=== PATIENT | male | born 1945 | race Caucasian/White ===

== ENCOUNTER 2016-06-16 03:41 | Emergency (ER) | payer OTHER, MEDICARE ==
[~2016-06-16] VITALS: Ht 177.8 cm; Wt 86.4 kg
[~2016-06-16 03:41] MED LIST: ANTI-DIARRHEAL2 M1 PO; ATIVAN0.5 MG PO; Ativan PO; BACLOFEN10 MG PO; BETHANECHOL CHL25 MG PO; BOTOX100 UNITS IJ; CELEXA10 M1 PO; CIPRO500 MG PO; CITALOPRAM HBR20 MG PO; DAILY VALUE1 EACH PO; FIBER LAX625 MG PO; FIBER LAXATIVE500 MG PO; FLAGYL500 MG PO; FLOMAX0.4 M1 PO; FLOMAX0.4 MG PO; FLORASTOR250 MG PO; Flomax PO; KEFLEX500 MG PO; LIDODERM 5% P1 PATCH TD; LORAZEPAM0.5 MG PO; Lioresal PO; METHENAMINE HIPP1 G1 PO; MULTIVITAMIN1 EAC1 PO; OS-CAL 500+D31 EACH PO; Oyst-Cal D, Oscal W/ PO; PRAVACHOL40 MG PO; PRAVASTATIN SOD40 MG PO; PRINZIDE 20-121 EACH PO; THERACRAN PO; THERACRAN650 MG PO; THERAGRAN1 TABLET PO; TYLENOL REGULA325 MG PO; Tylenol Regular Stre PO; URECHOLINE25 MG PO; UROQID-ACID1 TABLET PO; UTAC TABLET1 EACH PO; Vancocin Oral Soluti PO; ZESTORETIC,P1 TABLE1 PO; Zestril,Prinivil PO; Zocor PO; [UNRECOGNIZED DRUG - OTHER] PO
[2016-06-16 05:27] VITALS: BP 130/78
== END 2016-06-16 05:29 | disposition home or self-care (01) ==
LOC: EME 03:41
PROC: 0T2BX0Z Change Drainage Device in Bladder, External Approach (ICD-10-PCS; principal; 2016-06-16)
DX: T83.028A Displacement of other urinary catheter, initial encounter (principal); W05.0XXA Fall from non-moving wheelchair, initial encounter; Z46.6 Encounter for fitting and adjustment of urinary device; N31.9 Neuromuscular dysfunction of bladder, unspecified
CPT/HCPCS: 99281; 99284

== ENCOUNTER 2016-07-22 02:50 | Emergency (ER) | payer OTHER, MEDICARE ==
[~2016-07-22] VITALS: Ht 177.8 cm; Wt 84.6 kg
[2016-07-22 03:27] LABS: ADD MIUA? YES; BILIRUBIN NEGATIVE; BLOOD SMALL; COLOR YELLOW ((YELLOW)); GLUCOSE (STRIP) NEGATIVE; KETONES NEGATIVE; LEUKOCYTES LARGE; NITRITE POSITIVE; PROTEIN (STRIP) 30; SPECIFIC GRAVITY 1.016 (1.000-1.030); UROBILINOGEN 0.2 MG/DL (0.2-1.0)
[2016-07-22 03:46] LABS: BACTERIA 3+ /HPF; CASTS NONE SEEN /LPF; CRYSTALS NONE SEEN; EPITHELIAL CELLS RARE /HPF; MUCUS NONE SEEN /LPF; WHITE BLOOD CELLS TNTC /HPF (0-5)
[2016-07-22] MEDS ORDERED: LEVAQUIN750 MG PO (03:51)
[2016-07-22 04:00] VITALS: BP 116/65
== END 2016-07-22 04:19 | disposition home or self-care (01) ==
LOC: EME → EDBD 02:50 → EME 04:19
PROVIDERS: Emergency Medicine
PROC: 0T2BX0Z Change Drainage Device in Bladder, External Approach (ICD-10-PCS; principal; 2016-07-22)
DX: N39.0 Urinary tract infection, site not specified (principal); T83.091A Other mechanical complication of indwelling urethral catheter, initial encounter; G35 Multiple sclerosis; N31.9 Neuromuscular dysfunction of bladder, unspecified
CPT/HCPCS: 81003; 87077; 87086; 87186; 99281; 99284

== ENCOUNTER 2016-11-22 22:48 | Emergency (ER) | payer OTHER, MEDICARE ==
[~2016-11-22] VITALS: Ht 177.8 cm; Wt 88.2 kg
[~2016-11-22 22:48] MED LIST changes: +LEVAQUIN750 MG PO
[2016-11-23 00:24] LABS: ADD MIUA? YES; BILIRUBIN NEGATIVE; BLOOD LARGE; COLOR YELLOW ((YELLOW)); GLUCOSE (STRIP) NEGATIVE; KETONES 20; LEUKOCYTES LARGE; NITRITE NEGATIVE; PROTEIN (STRIP) 100; SPECIFIC GRAVITY 1.017 (1.000-1.030); UROBILINOGEN 0.2 MG/DL (0.2-1.0)
[2016-11-23 00:44] LABS: BACTERIA RARE /HPF; EPITHELIAL CELLS NONE SEEN /HPF; MUCUS 1+ /LPF; RED BLOOD CELLS TNTC /HPF (0-5); WHITE BLOOD CELLS TNTC /HPF (0-5)
[2016-11-23] MEDS ORDERED: LEVAQUIN750 MG PO (01:09)
[2016-11-23 01:45] VITALS: BP 124/74
== END 2016-11-23 01:46 | disposition home or self-care (01) ==
LOC: EME → EDBD 22:48 → EME 11-23 01:46
PROVIDERS: Emergency Medicine
DX: R31.9 Hematuria, unspecified (principal); Z46.6 Encounter for fitting and adjustment of urinary device; I10 Essential (primary) hypertension; E78.5 Hyperlipidemia, unspecified
CPT/HCPCS: 81003; 87086; 99281; 99284

== ENCOUNTER 2017-04-08 15:56 | Emergency (ER) | payer OTHER, MEDICARE ==
[~2017-04-08] VITALS: Ht 172.7 cm; Wt 89.1 kg
[2017-04-08 17:33] LABS: HEMATOCRIT 34.2 % (38.0-50.0); HEMOGLOBIN 10.5 G/DL (12.5-16.6); MCH 23.2 PG (29.0-34.0); MCHC 30.7 G/DL (30.0-36.0); MCV 75.5 FL (86-99); PLATELET COUNT 207 K/uL (156-360); RBC DIS.WIDTH-CV 14.9 % (11.8-14.6); RED BLOOD COUNT 4.53 M/uL (4.00-5.50); WHITE BLOOD COUNT 14.5 K/uL (4.1-10.2)
[2017-04-08 17:41] LABS: ALBUMIN 3.6 g/dL (3.2-4.8); CHLORIDE 100 mEq/L (99-109); POTASSIUM 4.7 mEq/L (3.7-5.4); SODIUM 134 mEq/L (136-147)
[2017-04-08 17:43] LABS: GLUCOSE 241 mg/dL (70-99); TOTAL PROTEIN 6.3 g/dL (6.4-8.3)
[2017-04-08 17:45] LABS: TOTAL BILIRUBIN 0.5 mg/dL (0.0-1.0)
[2017-04-08 17:47] LABS: ALKALINE PHOSPHATASE 89 IU/L (3-129); CREATININE 1.4 mg/dL (0.6-1.3); GFR ESTIMATE (CALCULATED) 53 mL/min/ (58.99-99999)
[2017-04-08 17:48] LABS: UREA NITROGEN (BUN) 29 mg/dL (9-23)
[2017-04-08 17:49] LABS: AST (GOT) 21 IU/L (2-34)
[2017-04-08 17:50] LABS: ALT (GPT) 34 IU/L (3-49)
[2017-04-08 18:25] LABS: APPEARANCE CLOUDY ((CLEAR)); BILIRUBIN NEGATIVE; BLOOD LARGE; COLOR AMBER ((YELLOW)); GLUCOSE (STRIP) NEGATIVE; KETONES NEGATIVE; LEUKOCYTES LARGE; NITRITE POSITIVE; PROTEIN (STRIP) 100; SPECIFIC GRAVITY 1.019 (1.000-1.030); UROBILINOGEN 0.2 MG/DL (0.2-1.0)
[2017-04-08 18:37] LABS: RED BLOOD CELLS TNTC /HPF (0-5)
[2017-04-08] MEDS ORDERED: CIPRO500 MG PO (20:07)
[2017-04-08 20:28] VITALS: BP 98/57
== END 2017-04-08 20:31 | disposition home or self-care (01) ==
LOC: EME 15:56
PROVIDERS: Emergency Medicine
PROC: 0T9B70Z Drainage of Bladder with Drainage Device, Via Natural or Artificial Opening (ICD-10-PCS; principal; 2017-04-08)
DX: N39.0 Urinary tract infection, site not specified (principal); Z46.6 Encounter for fitting and adjustment of urinary device; N31.9 Neuromuscular dysfunction of bladder, unspecified; G35 Multiple sclerosis; K21.9 Gastro-esophageal reflux disease without esophagitis; J45.909 Unspecified asthma, uncomplicated; I10 Essential (primary) hypertension; E78.5 Hyperlipidemia, unspecified; F41.9 Anxiety disorder, unspecified
CPT/HCPCS: 80053; 81003; 85027; 99281; 99285